=== PATIENT | female | born 1995 | race Caucasian/White ===

== ENCOUNTER 2017-01-05 21:01 | Emergency (ER) | payer BC ==
--- NOTE | 2017-01-05 21:27 | Emergency Department Record ---
History of Present Illness - General Chief complaint: Vaginal bleeding Stated complaint: CRAMPS,BLEEDING Time Seen by Provider: 01/05/17 21:21 Source: Patient Mode of Arrival: Ambulatory Limitations: No limitations - History of Present Illness Initial comments: The patient is here due to vaginal bleeding and cramping off and on for 2 weeks. She was seen in an UC last week in [place] and was given Provera pills and is set up with an appointment with a [facility] doctor in 11 days. The bleeding did improve and then now today it has worsened. She denies any dysuria, fever, chills, nausea, vomiting, or diarrhea. MD Complaint: Pelvic pain, Vaginal bleeding Onset/Timin -: Week(s) Location: Suprapubic Severity scale (1-10): 5 Quality: Cramping Consistency: Intermittent Improves with: None Associated Symptoms: Nausea/vomiting - Related Data Home Medications Medication Instructions Recorded Confirmed Last Taken Duloxetine HCl [Cymbalta] 60 mg PO DAILY 01/05/17 01/05/17 Unknown Etonogestrel/Ethinyl Estradiol 1 each VG DAILY 01/05/17 01/05/17 01/05/17 [Nuvaring Vaginal Ring] Trazodone HCl 100 mg PO QPM 01/05/17 01/05/17 Unknown Previous Rx's Medication Instructions Recorded Doxycycline Monohydrate [Mondoxyne 100 mg PO BID #14 capsule 01/05/17 Nl] Metronidazole [Flagyl] 500 mg PO BID #14 tablet 01/05/17 Naproxen [Naprosyn] 500 mg PO BID #14 tablet. 01/05/17 Allergies Allergy/AdvReac Type Severity Reaction Status Date / Time No Known Drug Allergies Allergy Verified 01/05/17 21:07 Travel Screening - Travel/Exposure Within Last 30 Days Have you traveled within the last 30 days?: No - Travel Symptoms Symptom Screening: None Review of Systems Constitutional: Denies: Chills, Fever Eyes: Denies: Eye discharge ENT: Denies: Congestion Respiratory: Denies: Cough, Dyspnea Past Medical History - SOCIAL HISTORY Smoking Status: Never smoker - RESPIRATORY Hx Respiratory Disorders: No - CARDIOVASCULAR Hx Cardio Disorders: No - NEURO Hx Neuro Disorders: No - GI Hx GI Disorders: No - Hx Genitourinary Disorders: No - ENDOCRINE Hx Endocrine Disorders: No - MUSCULOSKELETAL Hx Musculoskeletal Disorders: No - PSYCH Hx Psych Problems: Yes Hx Anxiety: Yes Hx Depression: Yes - HEMATOLOGY/ONCOLOGY Hx Hematology/Oncology Disorders: No Family Medical History Any Significant Family History?: Yes Hx Diabetes: Grandparents Hx Heart Disease: Grandparents Hx HTN: Grandparents Hx Stroke: Grandparents Physical Exam - General General Appearance: Alert, Oriented x3, Cooperative, No acute distress - Head Head exam: Atraumatic, Normocephalic, Normal inspection - Eye Eye exam: Normal appearance, PERRL - Neck Neck exam: Normal inspection, Full ROM. negative: Tenderness - Respiratory Respiratory exam: Normal lung sounds bilaterally. negative: Respiratory distress - Cardiovascular Cardiovascular Exam: Regular rate, Normal rhythm, Normal heart sounds - GI/Abdominal GI/Abdominal exam: Soft, Tenderness (There is mild diffuse lower abdominal tenderness.). negative: Distended, Rebound, Rigid - exam: Adnexal tenderness (L), Adnexal tenderness (R), cervical motion tenderness, Normal external exam, Vaginal discharge (mild), Vaginal erythema ( mild). negative: Cervical discharge, Enlarged uterus, Normal bimanual exam, Normal speculum exam (small amount of old blood in the vault.), Vaginal bleeding - Extremities Extremities exam: Normal inspection, Full ROM, Normal capillary refill. negative: Tenderness Course Vital Signs 01/05/17 21:10 Temperature 99.4 F Pulse Rate [ 83 Pulse Ox Probe] Respiratory 18 Rate Blood Pressure 117/80 [Left Arm] Pulse Ox 100 - Reevaluation(s) Reevaluation #1: The patient is feeling better at this time. On exam her lower abdominal area is soft with no significant tenderness. I did discuss the lab results with the patient and did recommend a pelvic US tomorrow morning. She is up walking with no significant discomfort. 01/05/17 23:09 01/05/17 23:18 Reevaluation #2: I did set the patient up for an US for tomorrow morning at 9am here at [facility]. She is to return to the ER at 8:30 for recheck and to obtain the US. 01/05/17 23:17 Medical Decision Making - Lab Data Result diagrams: 01/05/17 21:50 01/05/17 21:50 Disposition Disposition: Discharge Clinical Impression: Pelvic pain Disposition: Home, Self-Care Condition: (1) Good Instructions: Pelvic Pain in Women (ED) Additional Instructions: The patient is to take Naprosyn for pain and continue the Doxycycline and Flagyl. She is to return to the ER at 8:30 am for recheck and for a 9am US. She also is to keep her appointment with her [facility] specialist for early Sept. Prescriptions: Doxycycline Monohydrate [Mondoxyne Nl] 100 mg PO BID #14 capsule Metronidazole [Flagyl] 500 mg PO BID #14 tablet Naproxen [Naprosyn] 500 mg PO BID #14 tablet.dr Forms: Patient Portal Access Time of Disposition: 23:20 Quality - Quality Measures Quality Measures: N/A - Blood Pressure Screening Does Patient Have Any of the Following: No Blood Pressure Classification: Normal BP Reading Systolic Measurement: 108 Diastolic Measurement: 64 Screening for High Blood Pressure: < Normal BP, F/U Not Required > [G8783]
[2017-01-05 22:19] LABS: URINE APPEARANCE CLEAR; URINE BILIRUBIN NEGATIVE (NEGATIVE); URINE BLOOD MODERATE (NEGATIVE); URINE COLOR YELLOW; URINE GLUCOSE (UA) NEGATIVE (NEGATIVE); URINE KETONE NEGATIVE (NEGATIVE); URINE LEUKOCYTE ESTERASE NEGATIVE (NEGATIVE); URINE NITRITE NEGATIVE (NEGATIVE); URINE PROTEIN NEGATIVE (NEGATIVE)
[2017-01-05 22:19] LABS: BASO % 0.3 % (0-6); EOS % 1.5 % (0-6); GRAN % 46.9 % (47-80); HEMATOCRIT 37.6 % (35.0-47.0); HEMOGLOBIN 12.5 gm/dl (11.6-16.0); LYMPH % 44.1 % (16-45); MEAN CELL VOLUME 86.6 fl (81-97); MEAN CORPUSCULAR HEMOGLOBIN 28.8 pg (27-33); MEAN CORPUSCULAR HGB CONC 33.2 g/dl (32-36); MEAN PLATELET VOLUME 11.8 fl (7.4-10.4); MONO % 7.2 % (0-9); PLATELET COUNT 223 K/uL (130-400); RED BLOOD COUNT 4.34 M/uL (3.80-5.40); RED CELL DISTRIBUTION WIDTH 12.8 % (11.5-14.5); WHITE BLOOD COUNT W/O DIFF 8.7 K/uL (4.2-12.2)
[2017-01-05 22:27] LABS: ALBUMIN 3.8 gm/dL (3.5-5.0); ALKALINE PHOSPHATASE 95 U/L (38-126); ALT/SGPT 30 U/L (9-52); AST/SGOT 17 U/L (14-36); BILIRUBIN,TOTAL 0.41 mg/dL (0.2-1.3); BLOOD UREA NITROGEN 10 mg/dL (7-17); CREATININE 0.8 mg/dL (0.52-1.04); EST GLOMERULAR FILTRATION RATE > 60 ml/min; GLUCOSE,RANDOM 105 mg/dL (70-110); LIPASE 223 U/L (23-300); TOTAL PROTEIN 6.7 gm/dL (6.3-8.2)
[2017-01-05 22:35] LABS: URINE AMORPHOUS SEDIMENT 1+; URINE MUCUS LIGHT
[2017-01-05 22:50] LABS: HCG,QUALITATIVE URINE NEGATIVE (NEGATIVE)
[2017-01-05] MEDS ORDERED: KETOROLAC 30 MG/ML VIAL IM ONE (22:51)
[2017-01-05] MEDS ORDERED: CEFTRIAXONE 250 MG VIAL IM ONE (22:52)
[2017-01-05] MEDS ORDERED: DOXYCYCLINE HYCLATE 100 MG CAPSULE PO ONE (23:01)
== END 2017-01-05 23:37 | disposition home or self-care (01) ==
LOC: ER 21:01
DX: R10.2 Pelvic and perineal pain (principal); R11.2 Nausea with vomiting, unspecified; N93.9 Abnormal uterine and vaginal bleeding, unspecified
CPT/HCPCS: 80048; 80076; 81001; 81025; 83690; 85025; 87210; 96372; 99284; J1885

== ENCOUNTER 2017-01-06 08:39 | Emergency (ER) | payer BC ==
--- NOTE | 2017-01-06 09:18 | Emergency Department Record ---
History of Present Illness - General Chief Complaint: Recheck - Other Stated Complaint: ULTRASOUND/PELVIC Time Seen by Provider: 01/06/17 08:57 Source: Patient Mode of arrival: Ambulatory Limitations: No limitations - History of Present Illness Initial Comments: pt was here last night for pelvic pain and bleeding. she is haere to have an us as rxd by dr lopes. her pain is improved. she is still bleeding MD Complaint: Other Initial Visit For: Other Returns Today for: Other Symptoms Since Prior Visit: No new symptoms Associated Symptoms: None - Related Data Previous Rx's Medication Instructions Recorded Doxycycline Monohydrate [Mondoxyne 100 mg PO BID #14 capsule 01/05/17 Nl] Metronidazole [Flagyl] 500 mg PO BID #14 tablet 01/05/17 Naproxen [Naprosyn] 500 mg PO BID #14 tablet. 01/05/17 Hydrocodone/Acetaminophen [Reva 1 each PO QID #10 tablet 01/06/17 5-325 Tablet] Allergies Allergy/AdvReac Type Severity Reaction Status Date / Time No Known Drug Allergies Allergy Verified 01/06/17 08:47 Travel Screening - Travel/Exposure Within Last 30 Days Have you traveled within the last 30 days?: No Review of Systems Reviewed: No additional complaints except as noted below Constitutional: Reports: As per HPI. Denies: Chills, Fever, Malaise, Night sweats, Weakness, Weight change Eyes: Reports: As per HPI. Denies: Eye discharge, Eye pain, Photophobia, Vision change ENT: Reports: As per HPI. Denies: Congestion, Dental pain, Ear pain, Epistaxis , Hearing loss, Throat pain Respiratory: Reports: As per HPI. Denies: Cough, Dyspnea, Hemoptysis, Stridor, Wheezes Cardiovascular: Reports: As per HPI. Denies: Arrhythmia, Chest pain, Dyspnea on exertion, Edema, Murmurs, Orthopnea, Palpitations, Paroxysmal nocturnal dyspnea, Rheumatic Fever, Syncope Endocrine: Reports: As per HPI. Denies: Fatigue, Heat or cold intolerance, Polydipsia, Polyuria Gastrointestinal: Reports: As per HPI. Denies: Abdominal pain, Constipation, Diarrhea, Hematemesis, Hematochezia, Melena, Nausea, Vomiting Genitourinary: Reports: As per HPI. Denies: Abnormal menses, Discharge, Dyspareunia, Dysuria, Frequency, Hematuria, Incontinence, Retention, Urgency Musculoskeletal: Reports: As per HPI. Denies: Arthralgia, Back pain, Gout, Joint swelling, Myalgia, Neck pain Skin: Reports: As per HPI. Denies: Bruising, Change in color, Change in hair/ nails, Lesions, Pruritus, Rash Neurological: Reports: As per HPI. Denies: Abnormal gait, Confusion, Headache, Numbness, Paresthesias, Seizure, Tingling, Tremors, Vertigo, Weakness Psychiatric: Reports: As per HPI. Denies: Anxiety, Auditory hallucinations, Depression, Homicidal thoughts, Suicidal thoughts, Visual hallucinations Hematological/Lymphatic: Reports: As per HPI. Denies: Anemia, Blood Clots, Easy bleeding, Easy bruising, Swollen glands Past Medical History - SOCIAL HISTORY Smoking Status: Never smoker Alcohol Use: None Drug Use: None - RESPIRATORY Hx Respiratory Disorders: No - CARDIOVASCULAR Hx Cardio Disorders: No - NEURO Hx Neuro Disorders: No - GI Hx GI Disorders: No - Hx Genitourinary Disorders: No - ENDOCRINE Hx Endocrine Disorders: No - MUSCULOSKELETAL Hx Musculoskeletal Disorders: No - PSYCH Hx Psych Problems: Yes Hx Anxiety: Yes Hx Depression: Yes - HEMATOLOGY/ONCOLOGY Hx Hematology/Oncology Disorders: No Family Medical History Any Significant Family History?: Yes Hx Diabetes: Grandparents Hx Heart Disease: Grandparents Hx HTN: Grandparents Hx Stroke: Grandparents Physical Exam - General General Appearance: Alert, Oriented x3, Cooperative, No acute distress - Head Head exam: Normal inspection - Eye Eye exam: Normal appearance, PERRL, EOMI Pupils: Normal accommodation - ENT ENT exam: Normal exam, Mucous membranes moist, Normal external ear exam, Normal orophraynx Ear exam: Normal external inspection. negative: External canal tenderness Nasal Exam: Normal inspection. negative: Discharge, Sinus tenderness Mouth exam: Normal external inspection, Tongue normal Teeth exam: Normal inspection. negative: Dental caries Throat exam: Normal inspection. negative: Tonsillar erythema, Tonsillar exudate - Neck Neck exam: Normal inspection, Full ROM. negative: Tenderness - Respiratory Respiratory exam: Normal lung sounds bilaterally. negative: Respiratory distress - Cardiovascular Cardiovascular Exam: Regular rate, Normal rhythm, Normal heart sounds - GI/Abdominal GI/Abdominal exam: Soft, Normal bowel sounds. negative: Tenderness - Rectal Rectal exam: Deferred - exam: Deferred - Extremities Extremities exam: Normal inspection, Full ROM, Normal capillary refill. negative: Tenderness - Back Back exam: Reports: Normal inspection, Full ROM. Denies: Muscle spasm, Rash noted, Tenderness - Neurological Neurological exam: Alert, CN II-XII intact, Normal gait, Oriented X3 - Psychiatric Psychiatric exam: Normal affect, Normal mood - Skin Skin exam: Dry, Intact, Normal color, Warm Course Vital Signs 01/06/17 08:44 Temperature 98.7 F Pulse Rate 87 Respiratory 18 Rate Blood Pressure 106/75 Pulse Ox 95 - Reevaluation(s) Reevaluation #1: 01/06/17 11:04 d/w dr vanita alves Reevaluation #2: 01/06/17 11:07 dr alves requested pt be given pain meds Disposition Disposition: Discharge Clinical Impression: Dysfunctional uterine bleeding Disposition: Home, Self-Care Condition: (1) Good Additional Instructions: follow up with dr vanita alves as scheduled. return sooner if worse. Prescriptions: Hydrocodone/Acetaminophen [Reva 5-325 Tablet] 1 each PO QID #10 tablet Forms: Patient Portal Access Quality - Quality Measures Quality Measures: N/A - Blood Pressure Screening Does Patient Have Any of the Following: No Blood Pressure Classification: Normal BP Reading Systolic Measurement: 106 Diastolic Measurement: 75 Screening for High Blood Pressure: < Normal BP, F/U Not Required > [G8783]
--- NOTE | 2017-01-07 16:14 | ULTRASOUND REPORT ---
DATE: 01/06/2017 at 9:05 a.m. EXAM: PELVIC ULTRASOUND PELVIC WITH TRANSVAGINAL. HISTORY: Heavy periods and pelvic pain. TECHNIQUE: Sonographic evaluation was performed using transabdominal and transvaginal probes. COMPARISON: 04/09/2010. FINDINGS: Transabdominal scan: The uterus is anteverted in position and normal in size measuring 7.0 x 3.0 x 4.6 cm. The myometrium appears normal. The endometrium is only faintly visualized with the stripe measuring approximately 11 mm. There is a focal area of decreased echogenicity within the lower uterine segment measuring 2.3 x 1.6 x 3.0 cm. The appearance is suggestive of fluid and debris. This is described in more detail in the transvaginal paragraph. The ovaries and adnexa appear normal. The right ovary measures 2.5 x 1.3 x 2.4 cm, and the left ovary measures 3.1 x 1.1 x 2.6 cm. There is no free fluid within the pelvis. Transvaginal: The uterus is normal in size and anteverted in position. There is heterogenous fluid and debris within the lower uterine segment suggesting blood and blood clots. The myometrium is normal. The endometrial stripe measures 1.0 cm in thickness. The ovaries and adnexa are normal. The right ovary measures 1.6 x 1.6 x 2.7 cm , and the left ovary measures 2.9 x 1.6 x 1.8 cm. There is trace free fluid within the posterior cul de sac. Duplex Doppler ultrasound was performed to assess for ovarian torsion. Color Doppler images show symmetric blood flow within the ovaries. Intraovarian spectral venous and arterial waveforms are symmetrical and demonstrate unremarkable uncorrected velocities. There is no ovarian torsion. IMPRESSION: 1. FLUID AND DEBRIS WITHIN THE ENDOMETRIUM SUGGESTING BLOOD AND BLOOD CLOTS. 2. TRACE FLUID WITHIN THE POSTERIOR CUL DE SAC. 3. NORMAL OVARIES AND ADNEXA. JOB NUMBER: [id number] [facility]
== END 2017-01-06 11:17 | disposition home or self-care (01) ==
LOC: ER 08:39
DX: N93.8 Other specified abnormal uterine and vaginal bleeding (principal)
CPT/HCPCS: 76830; 76856; 99283